=== PATIENT | female | born 1995 | race Caucasian/White ===

== ENCOUNTER 2020-04-24 14:00 | Outpatient (CLI) | payer OTHER, SELFPAY | END 2020-04-24 14:01 | disposition home or self-care (01) | PROVIDERS: PCP Family Medicine; Visit Provider Student in an Organized Health Care Education/Training Program | DX: Z68.36 Body mass index [BMI] 36.0-36.9, adult (principal) | CPT/HCPCS: 36415; 84443 ==

== ENCOUNTER 2020-06-25 14:49 | Outpatient (CLI) | payer OTHER, SELFPAY ==
[2020-06-25 15:25] LABS: Basophils Percent Auto 0.2 % (0.2-1.2); Eosinophils Absolute Auto 0.1 K/mm3 (0-0.3); Eosinophils Percent Auto 1.2 % (0-4.4); Hematocrit 35.2 % (37.0-47.0); Hemoglobin 11.9 g/dL (12.0-15.0); Immature Granulocyte Absolute 0.04 K/mm3 (0.00-0.031); Immature Granulocyte Percent A 0.4 % (0-0.5); Lymphocytes Absolute Auto 2.85 K/mm3 (0.9-3.2); Lymphocytes Percent Auto 29.4 % (18.3-44.2); Mean Corpuscular HGB Conc 33.8 g/dl (32-36); Mean Corpuscular Hemoglobin 30.5 pg (26-34); Mean Corpuscular Volume 90.3 fl (80-100); Mean Platelet Volume 9.4 fl (7.4-10.4); Monocytes Absolute Auto 0.7 K/mm3 (0.1-0.6); Monocytes Percent Auto 7.4 % (2.6-8.5); Neutrophils Absolute Auto 5.9 K/mm3 (1.3-6.7); Neutrophils Percent Auto 61.4 % (45.5-73.1); Platelet Count Result 286 k/mm3 (150-375); Red Cell Distribution Width 12.3 % (11.5-14.5); White Blood Count 9.7 K/mm3 (4.5-10.0)
[2020-06-25 15:31] LABS: Add Urine Microscopic? YES; Appearance Urine Cloudy (Clear); Bacteria Urine Trace /hpf; Bilirubin Urine Negative (Negative); Blood Urine Negative (Negative); Color Urine Yellow (Yellow); Glucose Urine UA Negative (Negative); Ketones Urine Negative (Negative); Leukocyte Esterase Ur 1+ LEU/UL (NEGATIVE); Mucus Urine Few /lpf; Nitrate Urine Negative (Negative); Protein Urine 1+ mg/dL (Negative); RBC Urine 0-2 /hpf (0-2); Specific Grav Ur 1.026 (1.001-1.035); Squamous Epithelial Cell Urine Many /hpf (Few); Urobilinogen Urine Negative mg/dL (<2.0)
[2020-06-25 16:15] LABS: HIV 1/2 Ab P24 Ag Result Negative (Negative); Vitamin D 25 Hydroxy 25.2 ng/mL
[2020-06-25 16:29] LABS: Hepatitis B Surface Antigen Negative (Negative); Rubella IgG Antibody 3.6 IU/ML
[2020-06-25 16:45] LABS: Hepatitis C Virus Antibody Negative (Negative)
[2020-06-26 14:14] LABS: Rapid Plasma Reagin Non-Reactive (NonReactive)
[2020-07-02 21:04] LABS: Hematocrit 34.8 % (35.0-45.0); Hemoglobin 11.8 g/dL (11.7-15.5); MCH 31.1 pg (27.0-33.0); MCV 91.6 FL (80.0-100.0); RDW 13.1 % (11.0-15.0)
== END 2020-06-25 14:50 | disposition home or self-care (01) ==
LOC: ANHLAB 14:52
PROVIDERS: PCP Family Medicine; Visit Provider Student in an Organized Health Care Education/Training Program
DX: Z34.90 Encounter for supervision of normal pregnancy, unspecified, unspecified trimester (principal); Z3A.00 Weeks of gestation of pregnancy not specified
CPT/HCPCS: 36415; 81001; 82306; 83021; 84443; 85025; 86592; 86703; 86762; 86787; 86803; 86850; 86900; 86901; 87086; 87340; G0432